=== PATIENT | male | born 1980 | race Caucasian/White ===

== ENCOUNTER 2019-10-16 01:33 | Emergency (ER) | payer MEDICAID ==
[2019-10-16] MEDS ORDERED: Sodium Chloride 0.9% 1,000 ML IV ONE (01:40)
--- NOTE | 2019-10-16 01:55 | EDM.PDOC ---
ED HPI GENERAL MEDICAL PROBLEM - General Chief Complaint: Drug or Alcohol Abuse Stated Complaint: OVERDOSE Time Seen by Provider: 10/16/19 01:36 Source of Information: Reports: Police History Limitations: Reports: No Limitations - History of Present Illness INITIAL COMMENTS - FREE TEXT/NARRATIVE: This 39-year-old gentleman presents to the emergency room after being found unresponsive by rescue/police. The patient was given 4 of Narcan intranasally and a total of 4 mg of Narcan IV. Patient did not respond to the intranasal dose but responded nicely to the IV dose. The patient arrived in the emergency room awake and alert and a little confused. She is breathing on his own with a great pulse oximetry. Onset: Today Duration: Minutes:, Resolved Prior to Arrival Severity: Severe Improves with: Reports: Medication (Patient improved with Narcan) Associated Symptoms: Reports: Confusion, Nausea/Vomiting Treatments TELEVISION TECHNICIAN: Reports: Oxygen, Other (see below) Other Treatments TELEVISION TECHNICIAN: narcan - Related Data Allergies Allergy/AdvReac Type Severity Reaction Status Date / Time No Known Allergies Allergy Verified 10/16/19 01:43 Home Meds: Home Meds LORazepam [Ativan] 1 mg PO Q8H #12 tab 09/25/19 [Rx] Ondansetron [Zofran ODT] 4 mg PO Q6H #4 tab.dis 09/25/19 [Rx] Past Medical History - Past Health History Medical/Surgical History: Denies Medical/Surgical History Neurological History: Reports: Seizure Other Neuro History: Alcohol detox related seizures Psychiatric History: Reports: Addiction, Other (See Below) Other Psychiatric History: etoh abuse - Infectious Disease History Infectious Disease History: Reports: Chicken Pox - Past Surgical History GI Surgical History: Reports: Cholecystectomy Other GI Surgeries/Procedures: Drained liver abcess Musculoskeletal Surgical History: Reports: Other (See Below) Other Musculoskeletal Surgeries/Procedures:: MCL repair Social & Family History - Tobacco Use Smoking Status *Q: Never Smoker Second Hand Smoke Exposure: No - Caffeine Use Caffeine Use: Reports: Coffee, Soda - Recreational Drug Use Recreational Drug Use: No Other Recreational Drug Type: states today was first time using heroin ED ROS GENERAL - Review of Systems Review Of Systems: Comprehensive ROS is negative, except as noted in HPI. Constitutional: Reports: No Symptoms HEENT: Reports: No Symptoms Respiratory: Reports: Other (The patient reported not to adequate respiration) Cardiovascular: Reports: No Symptoms Endocrine: Reports: No Symptoms GI/Abdominal: Reports: No Symptoms : Reports: No Symptoms Musculoskeletal: Reports: No Symptoms Skin: Reports: No Symptoms Neurological: Reports: Confusion Psychiatric: Reports: No Symptoms Hematologic/Lymphatic: Reports: No Symptoms Immunologic: Reports: No Symptoms - Physical Exam Exam: See Below Text/Narrative:: This 39-year-old gentleman presents the emergency room after being found unresponsive without adequate respirations by the police. Patient was given Narcan intranasally and IV. Patient responded well to the Narcan and when he arrived to the emergency room he was awake alert oriented with a good pulse oximetry. Physical exam HEENT is normal. Lungs are clear to auscultation no rales rhonchi or wheezing Abdomen soft nontender. Extremities: Patient is able to move all extremities without any pain or compromise Patient's back is nontender/no pain or swelling to the head or neck Exam Limited By: No Limitations General Appearance: Alert, WD/WN, No Apparent Distress Eye Exam: Bilateral Eye: PERRL Ears: Normal External Exam, Normal Canal, Hearing Grossly Normal, Normal TMs Nose: Normal Inspection, Normal Mucosa, No Blood, Other (nasal trumpet) Throat/Mouth: Normal Inspection Head Exam: Atraumatic, Normocephalic Neck: Normal Inspection, Supple, Non-Tender, Full Range of Motion (Male) Exam: Deferred Rectal (Males) Exam: Deferred Neuro Exam (Abbreviated): Alert, Oriented, CN II-XII Intact Back Exam: Normal Inspection, Full Range of Motion Extremities: Normal Inspection, Normal Range of Motion, Non-Tender, No Pedal Edema, Normal Capillary Refill Psychiatric: Normal Affect, Normal Mood Skin Exam: Warm, Dry, Intact, Normal Color, No Rash EKG INTERPRETATION EKG Date: 10/16/19 Time: 02:02 Rhythm: NSR Rate (Beats/Min): 114 Surfside: Normal P-Wave: Present QRS: Normal ST-T: Normal QT: Normal EKG Interpretation Comments: Sinus tachycardia rate of 114 otherwise normal Course - Vital Signs Text/Narrative:: HE has been observed approximately served over an hour and half has not had no signs of hypoxia overdose patient will be discharged home. Diagnosis of narcotic intentional overdose Last Recorded V/S: Last Vital Signs Temp 96.9 F 10/16/19 01:37 Pulse 97 10/16/19 02:44 Resp 16 10/16/19 02:44 BP 124/74 10/16/19 02:44 Pulse Ox 97 10/16/19 02:44 - Orders/Labs/Meds Labs: Laboratory Tests 10/16/19 10/16/19 Range/Units 01:30 01:30 WBC 9.21 (4.0-11.0) K/uL RBC 4.80 (4.50-5.90) M/uL Hgb 14.9 (13.0-17.0) g/dL Hct 42.3 (38.0-50.0) % MCV 88.1 (80.0-98.0) fL MCH 31.0 (27.0-32.0) pg MCHC 35.2 (31.0-37.0) g/dL RDW Std Deviation 41.6 (28.0-62.0) fl RDW Coeff of Salty 13 (11.0-15.0) % Plt Count 219 (150-400) K/uL MPV 9.40 (7.40-12.00) fL Neut % (Auto) 66.3 (48.0-80.0) % Lymph % (Auto) 27.9 (16.0-40.0) % Webster % (Auto) 4.7 (0.0-15.0) % Eos % (Auto) 0.9 (0.0-7.0) % Baso % (Auto) 0.2 (0.0-1.5) % Neut # (Auto) 6.1 H (1.4-5.7) K/uL Lymph # (Auto) 2.6 H (0.6-2.4) K/uL Webster # (Auto) 0.4 (0.0-0.8) K/uL Eos # (Auto) 0.1 (0.0-0.7) K/uL Baso # (Auto) 0.0 (0.0-0.1) K/uL Nucleated RBC % 0.0 /100WBC Nucleated RBCs # 0 K/uL Sodium 139 (136-148) mmol/L Potassium 3.5 (3.5-5.1) mmol/L Chloride 102 (98-107) mmol/L Carbon Dioxide 23.7 (21.0-32.0) mmol/L BUN 6 L (7.0-18.0) mg/dL Creatinine 1.2 (0.8-1.3) mg/dL Est Cr Clr Drug Dosing 79.17 mL/min Estimated GFR (MDRD) > 60.0 ml/min Glucose 211 H (74-106) mg/dL Calcium 8.7 (8.5-10.1) mg/dL Total Bilirubin 1.3 H (0.2-1.0) mg/dL AST 50 H (15-37) IU/L ALT 60 (14-63) IU/L Alkaline Phosphatase 71 (46-116) U/L Total Protein 8.1 (6.4-8.2) g/dL Albumin 4.4 (3.4-5.0) g/dL Globulin 3.7 (2.6-4.0) g/dL Albumin/Globulin Ratio 1.2 (0.9-1.6) Meds: Medications Discontinued Medications Generic Name Dose Route Start Last Admin Trade Name Freq PRN Reason Stop Dose Admin Sodium Chloride 1,000 mls @ 999 mls/hr 10/16/19 01:40 10/16/19 01:42 Normal Saline IV 10/16/19 02:40 999 mls/hr .Bolus ONE Administration Departure - Departure Time of Disposition: 02:56 Disposition: Home, Self-Care 01 Condition: Good Clinical Impression: Drug abuse - Discharge Information Instructions: Finding Treatment for Addiction Forms: ED Department Discharge Sepsis Event Note - Evaluation Sepsis Screening Result: No Definite Risk - Focused Exam Vital Signs: Vital Signs Temp Pulse Resp BP Pulse Ox 10/16/19 02:44 97 16 124/74 97 10/16/19 01:37 96.9 F 123 H 18 153/94 H 91 L Date Exam was Performed: 10/16/19 Time Exam was Performed: 02:54
[2019-10-16 02:07] LABS: BLOOD UREA NITROGEN,BUN 6 mg/dL (7.0-18.0); CARBON DIOXIDE,CO2 23.7 mmol/L (21.0-32.0); CHLORIDE,CL 102 mmol/L (98-107); GLUCOSE RANDOM 211 mg/dL (74-106); POTASSIUM,K 3.5 mmol/L (3.5-5.1); SODIUM,NA 139 mmol/L (136-148)
--- NOTE | 2019-10-16 02:33 | CR ---
INDICATION: Overdose TECHNIQUE: Chest 1 view COMPARISON: None FINDINGS: Cardiovascular and mediastinum: Heart size and vasculature are normal in caliber and appearance. Lungs and pleural spaces: Lungs are clear. No sign of infiltrate or mass. No sign of pleural effusion. No pneumothorax. Bones and soft tissues: No significant findings. IMPRESSION: Unremarkable single view chest. Dictated by Ye Solano MD @ Oct 16 2019 2:30AM Signed by Dr. Ye Solano @ Oct 16 2019 2:30AM
[2019-10-16] MEDS ORDERED: Ondansetron 4 MG/2 ML SDV IVPUSH ONE (03:13)
== END 2019-10-16 03:28 | disposition home or self-care (01) ==
LOC: MW.ED 01:33
DX: F19.10 Other psychoactive substance abuse, uncomplicated (principal)
CPT/HCPCS: 36415; 71045; 80053; 85025; 93005; 96361; 96374; 99285; J2405; J7030; 99283